=== PATIENT | male | born 1970 | race Caucasian/White ===

== ENCOUNTER 2019-08-10 12:02 | Emergency (ER) | payer MEDICAID, SELFPAY ==
[2019-08-10 12:17] VITALS: BP 129/89; PULSE 81; RESP 18; TEMP 36.5; O2SAT 100
--- NOTE | 2019-08-10 12:25 | ED.DENTAL ---
HPI - Dental/Oral General Chief complaint: Dental/Oral Stated complaint: toothache Time Seen by Provider: 08/10/19 12:27 Source: patient and RN notes reviewed Mode of arrival: ambulatory Limitations: no limitations History of Present Illness HPI Narrative: This is a 49 years old male presents to the office for an evaluation of dental pain for a couple days. Pain is worse on Thursday with facial swelling. Denies trouble breathing, drooling, fever, or vomiting. Admits to history of bad teeth. Related Data Allergies Allergy/AdvReac Type Severity Reaction Status Date / Time No Known Allergies Allergy Unverified 11/03/17 08:28 Review of Systems Review of Systems: Narrative: CONSTITUTIONAL: Denies fever or feeling ill ENT: Denies trouble swallowing CARDIOVASCULAR: Denies chest pain RESPIRATORY: Denies dyspnea GASTROINTESTINAL: Denies abdominal pain, nausea, vomiting, diarrhea. MUSCULOSKELETAL: Denies joints pain NEUROLOGIC: Denies lightheaded PMFSH Past Medical History Medical History (Updated 08/10/19 @ 12:40 by JORGE Block) Dental caries History of heroin abuse Comments At time of signature, I agree with nursing past medical, surgical, social and family history. There is no relevant family history pertinent to the presenting complaint. Exam Narrative: Exam Narrative: GENERAL: This is a well-nourished, well-developed patient, in no apparent distress. EYES: Sclera and conjunctivae normal ENT: External ears normal. Nose and lips normal. Airway patent.The teeth are carious throughout,the gum of affected tooth is swollen and tender around it. There is slight right side facial swelling, without cervical or submandibular lymphadenopathy. The patient appears uncomfortable and in pain. CARDIOVASCULAR: Regular rate and rhythm without murmurs, gallops, or rubs. RESPIRATORY: Clear to auscultation. Breath sounds equal bilaterally. No wheezes, rales, or rhonchi. GASTROINTESTINAL: Abdomen soft, non-tender, nondistended. Bowel sounds are active. No guarding. NEURO: awake, alert, and oriented to person, place and time. There were no obvious focal neurologic abnormalities. Course Vital Signs Vital signs: Vital Signs Temperature 97.7 F 08/10/19 12:17 Pulse Rate 81 08/10/19 12:17 Respiratory Rate 18 08/10/19 12:17 Blood Pressure 129/89 08/10/19 12:17 Pulse Oximetry 100 08/10/19 12:17 Temperature 97.7 F 08/10/19 12:17 Pulse Rate 81 08/10/19 12:17 Respiratory Rate 18 08/10/19 12:17 Blood Pressure 129/89 08/10/19 12:17 Pulse Oximetry 100 08/10/19 12:17 MDM - Dental/Oral MDM Narrative Medical decision making narrative: Discharge instructions reviewed with patient, as well as provided in writing per nursing staff. The instructions also include specific and strict return/GO TO THE ER as well as f/u information. All questions have been answered, and the patient deny any further questions with discharge and discharge plan. Differential Diagnosis Differential diagnosis: Likely gingival abscess, dental caries, toothache, dental abscess, fracture of tooth and aphthous ulcer Critical Care Time Critical Care Time Critical Care Time: No Discharge Plan Discharge Clinical Impression: Dental caries Patient Disposition: Home, Self-Care Condition: Stable Instructions: Antibiotic Form, Toothache (ED) Additional Instructions: Take antibiotic until it's gone. Brushing teeth at least twice daily with gentle flossing. Avoid temperature extremes---when you eat. Salt gargle to rinse your mouth after every meal You may apply ice to the face to reduce pain/swelling. For pain, you may take: you may take Tylenol 650-1000mg by mouth every 4-6 hours. Do not exceed 4000mg in 24 hours. DOT NOT take ibuprofen, aleve with prescription pain. Also, recommend regular dental check up one-two times a year to prevent tooth decay and other periodontal disease. Follow-up with the dentis
== END 2019-08-10 12:41 | disposition home or self-care (01) ==
PROVIDERS: Emergency Provider Nurse Practitioner
DX: K02.9 Dental caries, unspecified (principal)
CPT/HCPCS: 99213; G0463